=== PATIENT | male | born 1950 | race Caucasian/White ===

== ENCOUNTER 2020-03-31 07:31 | Day surgery (SDC) | payer BC ==
[~2020-03-31 07:31] MED LIST: Lactated Ringers 1,000 ML IV SCH
[2020-03-31] MEDS ORDERED: Propofol 200 MG/20 ML SDV ONE ×2 (08:51→09:15)
--- NOTE | 2020-03-31 14:42 | OR ---
DATE OF SURGERY: 03/31/2020. REFERRING PROVIDER: DEYVI Shell PRE-OPERATIVE DIAGNOSES: 1. History of colon polyps. The patient's last colonoscopy was about 7 years ago per patient report. 2. Positive family history of colon cancer in mother, diagnosed at age 50. 3. History of hemorrhoids with some occasional stool leakage. POST-OPERATIVE DIAGNOSES: 1. Three small polyps removed, all using cold forceps. a. 3 mm polyp at 60 cm. b. 2 mm and 3 mm polyps at 40 cm. 2. Mild sigmoid diverticulosis. 3. Moderate hemorrhoids with mild inflammation. No acute bleeding noted. 4. Normal-appearing distal ileum. PROCEDURE: Colonoscopy with polypectomy x3 (using cold forceps). SURGEON: Russel Fleming M.D. ANESTHESIA: Monitored anesthesia care. BOWEL PREP: Good. Jose is a 69-year-old male who was brought to the endoscopy suite after discussing risks and benefits of the procedure. Informed consent was obtained for conscious sedation and colonoscopy with or without biopsy and/or polypectomy. We also discussed possibility of missed lesions. Pre-procedure exam was unremarkable. IV, oxygen, and monitors were placed. The patient was placed in the left lateral decubitus position. Sedation was administered and a digital rectal exam was performed and remarkable for moderate external hemorrhoidal skin tags. Prostate was mildly enlarged, but no palpable nodules noted. Colonoscope was passed into the rectum and slowly advanced all the way to the cecum. Cecum was viewed and photographed. Ileocecal valve was intubated and distal ileum was normal in appearance. The colonoscope was slowly withdrawn and the mucosa was closed observed in a direct circumferential manner. The ascending colon was unremarkable. The transverse colon was remarkable for 3 mm polyp at 60 cm, removed using cold forceps. The descending colon was remarkable for 2 mm and 3 mm polyps at 40 cm, both removed using cold forceps. The sigmoid colon was remarkable for some mild diverticulosis. Retroflexion was performed and rectal mucosa was remarkable for some moderate hemorrhoids with some mild inflammation, but no acute bleeding. Scope was removed. The patient tolerated the procedure well. The patient was monitored until that baseline status. Discharge instructions were reviewed and the patient was discharged in good condition. COMPLICATIONS: None. TOTAL TIME: 26 minutes. ESTIMATED BLOOD LOSS: Less than 1 mL. RECOMMENDATIONS/FOLLOW-UP: We will await results of path report to determine ideal followup interval. We will have the patient hold his aspirin for 3 days to limit any chance of bleeding. Prescription was done for Anusol HC cream to use for his hemorrhoids p.r.n., but not any longer than 14 consecutive days. I would like to kindly thank Rajiv Lance for this referral. DMB: 03/31/2020 11:53:11 MODL: 03/31/2020 14:01:45 /[id number]
== END 2020-03-31 11:07 | disposition home or self-care (01) ==
LOC: VM.SDS 07:31
PROVIDERS: ATTEND Family Medicine
DX: Z12.11 Encounter for screening for malignant neoplasm of colon (principal); K57.30 Diverticulosis of large intestine without perforation or abscess without bleeding; K64.9 Unspecified hemorrhoids; I10 Essential (primary) hypertension; E78.5 Hyperlipidemia, unspecified; E66.9 Obesity, unspecified; M17.11 Unilateral primary osteoarthritis, right knee; Z91.030 Bee allergy status; Z80.0 Family history of malignant neoplasm of digestive organs; Z01.812 Encounter for preprocedural laboratory examination; Z20.828 Contact with and (suspected) exposure to other viral communicable diseases; Z98.890 Other specified postprocedural states; Z79.899 Other long term (current) drug therapy; Z88.8 Allergy status to other drugs, medicaments and biological substances; Z87.891 Personal history of nicotine dependence; Z68.30 Body mass index [BMI] 30.0-30.9, adult
CPT/HCPCS: 00812; J2704; J7120; U0002